=== PATIENT | male | born 2000 | race Caucasian/White ===

== ENCOUNTER 2021-10-18 18:38 | Emergency (ER) | payer MEDICAID ==
[~2021-10-18] VITALS: Wt 103.4 kg
[~2021-10-18 18:38] MED LIST: AUGMENTIN 400 M1 CTB PO
[2021-10-18] MEDS ORDERED: NAPROSYN500 MG PO (21:55)
== END 2021-10-18 22:04 | disposition home or self-care (01) ==
LOC: ED 18:38
DX: S46.912A Strain of unspecified muscle, fascia and tendon at shoulder and upper arm level, left arm, initial encounter (principal); X50.0XXA Overexertion from strenuous movement or load, initial encounter; Y93.89 Activity, other specified; Y92.89 Other specified places as the place of occurrence of the external cause; Y99.8 Other external cause status